=== PATIENT | female | born 1965 | race Caucasian/White ===

== ENCOUNTER 2023-06-05 09:52 | Outpatient (CLI) | payer BC, MEDICARE ==
[2023-06-05 10:58] LABS: Hematocrit 32.9 % (34.9-44.5); Hemoglobin 11.4 g/dL (12.0-15.5); Mean Corpuscular HGB CONC 34.7 g/dL (32.0-36.0); Mean Corpuscular Hemoglobin 33.4 pg (27.0-33.0); Mean Corpuscular Volume 96.5 fl (81.6-98.3); Mean Platelet Volume 9.3 fl (7.4-10.4); Platelet Count 215 10x3/uL (150-450); RBC Distribution Width 12.2 % (11.5-14.5); Red Blood Cell (RBC) Count 3.41 10x6/uL (3.90-5.03); White Blood Cell (WBC) Count 8.8 10x3/uL (3.5-10.5)
[2023-06-05 11:24] LABS: INR-International Normal Ratio 0.9; PTT 27.6 sec (22.0-33.0); Prothrombin Time 9.9 sec (9.5-12.1)
[2023-06-05 11:30] LABS: Anion Gap 19 mmol/L (10-20); BUN (Urea Nitrogen) 90 mg/dL (9.8-20.1); Calc. Creatinine Clearance 0 mL/min (70-130); Carbon Dioxide 25 mmol/L (22-29); Chloride 96 mmol/L (98-107); Estimated GFR 5; Glucose 98 mg/dL (70-105); Sodium 136 mmol/L (136-145)
== END 2023-06-05 09:53 | disposition home or self-care (01) ==
LOC: LABBT 09:52
PROVIDERS: ATTEND Neurological Surgery
DX: Z01.818 Encounter for other preprocedural examination (principal); M50.022 Cervical disc disorder at C5-C6 level with myelopathy; M50.023 Cervical disc disorder at C6-C7 level with myelopathy
CPT/HCPCS: 80048; 85027; 85610; 85730; 93005; 93010

== ENCOUNTER 2023-06-08 11:00 | Inpatient (IN) | payer BC ==
[2023-06-11] MEDS ORDERED: Vancomycin 1 GM VIAL ONE (06:10)
[2023-06-11] MEDS ORDERED: Thrombin 5000 UNITS/5 ML VIAL ONE (06:10)
[2023-06-11] MEDS ORDERED: Fentanyl 250 MCG/5 ML VIAL ONE (06:19)
[2023-06-11] MEDS ORDERED: PROPOFOL 20 ML ONE (06:19)
[2023-06-11] MEDS ORDERED: Lidocaine 1% PF 5 ML VIAL ONE ×2 (06:19→07:04)
[2023-06-11] MEDS ORDERED: Rocuronium Bromide 10 MG/ML (10ML VIAL) ONE ×2 (06:19→07:04)
[2023-06-11] MEDS ORDERED: CEFAZOLIN 2 GM VIAL ONE (06:44)
[2023-06-11] MEDS ORDERED: Sodium Chloride 0.9% 100 ML ONE ×2 (06:44→09:55)
[2023-06-11] MEDS ORDERED: Mag-Al 1200 mg/1200 mg/30 ML UDCUP PO PRN (06:50)
[2023-06-11] MEDS ORDERED: Ondansetron PF 4 MG/2 ML Vial IVP PRN (06:50)
[2023-06-11] MEDS ORDERED: diphenhydrAMINE 50 MG/ML VIAL IVP PRN (06:50)
[2023-06-11] MEDS ORDERED: Promethazine 25 MG TAB PO PRN (06:50)
[2023-06-11] MEDS ORDERED: Milk Of Magnesia 30 ML UDCUP PO PRN (06:50)
[2023-06-11] MEDS ORDERED: Acetaminophen/Codeine 30-300mg Tablet PO PRN (06:50)
[2023-06-11] MEDS ORDERED: HYDROcodone/Acetaminophen 7.5/325 mg Tablet PO PRN ×2 (06:50→22:47)
[2023-06-11] MEDS ORDERED: Acetaminophen 325 MG TAB PO PRN (06:50)
[2023-06-11] MEDS ORDERED: Morphine 2 MG/ML VIAL SLOW IVP PRN (06:50)
[2023-06-11] MEDS ORDERED: Midazolam HCl 2 mg/2 ml Vial ONE (06:53)
[2023-06-11] MEDS ORDERED: Ondansetron PF 4 MG/2 ML Vial ONE ×2 (07:04→07:31)
[2023-06-11] MEDS ORDERED: PROPOFOL 200 MG/20 ML VIAL ONE (07:04)
[2023-06-11] MEDS ORDERED: Dexamethasone 20 MG/5 ML VIAL ONE ×2 (07:04→07:31)
[2023-06-11] MEDS ORDERED: NEOSTIGMINE 3 MG/3 ML SYR 3 MG/3 ML SYRINGE ONE ×2 (07:04→09:55)
[2023-06-11] MEDS ORDERED: Glycopyrrolate 0.2 MG/ML 5 ML SYRINGE ONE ×2 (07:04→09:55)
[2023-06-11] MEDS ORDERED: PHENYLEPHRINE-NS 100 MCG/ML 10 ML SYRINGE ONE ×2 (07:04→08:36)
[2023-06-11 07:16] LABS: Hemoglobin 11.9 g/dL (12.0-16.0); Mean Corpuscular Hemoglobin 33.7 pg (27.0-31.0); Mean Corpuscular Volume 96.3 fl (78.0-98.0); Platelet Count 213 10x3/uL (130-400); RBC Distribution Width 12.1 % (11.5-14.5); Red Blood Cell (RBC) Count 3.53 mill/uL (4.20-5.40); White Blood Cell (WBC) Count 7.6 10x3/uL (4.8-10.8)
[2023-06-11 07:43] LABS: Anion Gap 17 mmol/L (10-20); BUN (Urea Nitrogen) 83 mg/dL (9.8-20.1); Calc. Creatinine Clearance 8 mL/min (70-130); Calcium 9.7 mg/dL (7.8-10.44); Carbon Dioxide 24 mmol/L (22-29); Chloride 98 mmol/L (98-107); Estimated GFR 5; Glucose 169 mg/dL (70-105); Potassium 3.8 mmol/L (3.5-5.1); Sodium 135 mmol/L (136-145)
[2023-06-11] MEDS ORDERED: Dexmedetomidine 200 MCG/2 ML VIAL ONE (09:37)
[2023-06-11] MEDS ORDERED: Lidocaine 2% PF 5 ML VIAL ONE (09:55)
[2023-06-11] MEDS ORDERED: fentaNYL 50 mcg/mL 1 mL Vial ONE ×2 (10:57→11:09)
[2023-06-11] MEDS ORDERED: Morphine 4 MG/ML VIAL ONE (11:27)
[2023-06-11] MEDS ORDERED: HYDROmorphone 0.5 MG/0.5 ML SYRINGE ONE (11:41)
[2023-06-11] MEDS ORDERED: tiZANidine HCl 4 MG TAB ONE (11:57)
[2023-06-11] MEDS: tiZANidine HCl 4 MG TAB PO PRN ×2 (11:59→21:09)
[2023-06-11] MEDS: Sodium Chloride 0.9% 1,000 ML IV SCH ×2 (12:39→18:33)
[2023-06-11 13:19] VITALS: BMI 30.2
[2023-06-11] MEDS ORDERED: Dextrose 50% Abboject 50 ML SYRINGE SLOW IVP PRN (14:00)
[2023-06-11] MEDS ORDERED: Dextrose 5% in Water 1,000 ML IV PRN (14:00)
[2023-06-11] MEDS ORDERED: Glucagon 1 MG/ML KIT IM PRN (14:00)
[2023-06-11] MEDS ORDERED: Senokot S 8.6-50 MG TAB PO SCH (15:00)
[2023-06-11] MEDS: HYDROcodone/Acetaminophen 10/325 mg Tablet PO PRN ×2 (15:49→21:09)
[2023-06-11] MEDS: CEFAZOLIN 2 GM in Sodium Chloride 0.9% 100 ML IVPB SCH ×2 (15:50→23:54)
[2023-06-11] MEDS: HumaLOG 300 UNITS/3 ML VIAL SC PRN ×2 (15:56→21:49)
[2023-06-11 18:37] LABS: HBSAg Index 0.45 S/CO (0-0.99); Hep B Core Total Ab Non-Reactive (NonReactive); Hep B Core Total Index 0.13 S/CO (0-0.79); Hep B Surf Ag Non-Reactive S/CO (NonReactive); Hep C IgG Ab Non-Reactive S/CO (NonReactive); Hep C Index 0.05 S/CO (0-0.79)
[2023-06-11 18:48] LABS: HBSAB Concentration 97.79 mIU/mL; Hep B Surf AB Reactive (NonReactive)
[2023-06-11] MEDS ORDERED: Atorvastatin Calcium 40 MG TAB PO SCH (21:00)
[2023-06-11] MEDS ORDERED: Terazosin HCl 5 MG CAP PO SCH (21:00)
[2023-06-11] MEDS: Carvedilol 25 MG TAB PO SCH (21:02)
[2023-06-11] MEDS: Artificial Tear Sol 15 ML BOT EA EYE SCH (21:02)
[2023-06-11] MEDS: Senokot S 8.6-50 MG TAB PO SCH (21:02)
[2023-06-12] MEDS ORDERED: HumaLOG 300 UNITS/3 ML VIAL SC PRN (01:34)
[2023-06-12] MEDS: HYDROcodone/Acetaminophen 10/325 mg Tablet PO PRN (02:01)
[2023-06-12] MEDS ORDERED: Levothyroxine Sodium 100 MCG TAB PO SCH (06:00)
[2023-06-12] MEDS: HumaLOG 300 UNITS/3 ML VIAL SC PRN ×3 (08:24→13:18)
[2023-06-12] MEDS: Carvedilol 25 MG TAB PO SCH (08:57)
[2023-06-12] MEDS: Senokot S 8.6-50 MG TAB PO SCH (08:57)
[2023-06-12] MEDS: Artificial Tear Sol 15 ML BOT EA EYE SCH (08:57)
[2023-06-12] MEDS ORDERED: Insulin NPH Human Isophane 100 UNITS/ML (10 ML VIAL) SC SCH ×2 (09:00→21:00)
[2023-06-12] MEDS ORDERED: Furosemide 80 MG TAB PO SCH (09:00)
[2023-06-12] MEDS ORDERED: Pregabalin 25 MG CAP PO SCH (09:00)
[2023-06-12] MEDS: Sodium Chloride 0.9% 1,000 ML IV SCH (09:08)
[2023-06-12 10:41] LABS: #Basophils 0.1 thou/uL (0.0-0.2); %Basophils 0.4 % (0.0-1.0); %Eosinophils 0.2 % (0.0-10.0); %Monocytes 8.2 % (0.0-10.0); Hematocrit 35.5 % (36.0-47.0); Hemoglobin 11.5 g/dL (12.0-16.0); Mean Corpuscular HGB CONC 32.4 g/dL (32.0-36.0); Mean Corpuscular Hemoglobin 32.4 pg (27.0-31.0); Mean Platelet Volume 9.3 fL (7.4-10.4); Platelet Count 231 10x3/uL (130-400); Red Blood Cell (RBC) Count 3.55 mill/uL (4.20-5.40)
[2023-06-12 11:06] LABS: Albumin 3.8 g/dL (3.5-5.0); Anion Gap 21 mmol/L (10-20); BUN (Urea Nitrogen) 89 mg/dL (9.8-20.1); BUN/Creatinine Ratio 9.04; Calc. Creatinine Clearance 8 mL/min (70-130); Carbon Dioxide 20 mmol/L (22-29); Chloride 91 mmol/L (98-107); Estimated GFR 4; Phosphorus 5.4 mg/dL (2.3-4.7); Potassium 4.3 mmol/L (3.5-5.1); Sodium 128 mmol/L (136-145)
[2023-06-12 11:21] LABS: Glucose 584 mg/dL (70-105)
[2023-06-12 13:41] VITALS: BP 171/84; TEMP 97.7
== END 2023-06-12 14:20 | disposition home or self-care (01) | DRG 471 ==
LOC: SURG A 06-11 06:03 → T4-A 06-11 12:38
PROVIDERS: ADMIT Neurological Surgery; ATTEND Neurological Surgery
PROC: 0RG2070 Fusion of 2 or more Cervical Vertebral Joints with Autologous Tissue Substitute, Anterior Approach, Anterior Column, Open Approach (ICD-10-PCS; principal; 2023-06-11)
PROC: 0RB30ZZ Excision of Cervical Vertebral Disc, Open Approach (ICD-10-PCS; 2023-06-11)
PROC: 00NW0ZZ Release Cervical Spinal Cord, Open Approach (ICD-10-PCS; 2023-06-11)
PROC: 3E1M39Z Irrigation of Peritoneal Cavity using Dialysate, Percutaneous Approach (ICD-10-PCS; 2023-06-11)
PROC: 0RG20A0 Fusion of 2 or more Cervical Vertebral Joints with Interbody Fusion Device, Anterior Approach, Anterior Column, Open Approach (ICD-10-PCS; 2023-06-11)
DX: M50.022 Cervical disc disorder at C5-C6 level with myelopathy (principal); N18.6 End stage renal disease; I12.0 Hypertensive chronic kidney disease with stage 5 chronic kidney disease or end stage renal disease; M47.12 Other spondylosis with myelopathy, cervical region; G95.20 Unspecified cord compression; M50.023 Cervical disc disorder at C6-C7 level with myelopathy; M19.90 Unspecified osteoarthritis, unspecified site; E78.00 Pure hypercholesterolemia, unspecified; G89.29 Other chronic pain; M48.02 Spinal stenosis, cervical region; M51.26 Other intervertebral disc displacement, lumbar region; M48.062 Spinal stenosis, lumbar region with neurogenic claudication; E03.9 Hypothyroidism, unspecified; D63.1 Anemia in chronic kidney disease; E11.22 Type 2 diabetes mellitus with diabetic chronic kidney disease; G43.909 Migraine, unspecified, not intractable, without status migrainosus; Z98.51 Tubal ligation status; Z99.2 Dependence on renal dialysis; Z98.890 Other specified postprocedural states; Z87.891 Personal history of nicotine dependence; Z88.1 Allergy status to other antibiotic agents
CPT/HCPCS: 36415; 36416; 80048; 80069; 85025; 85027; 86704; 90945; C1713; G0257; J1100; J1170; J1815; J2001; J2250; J2270; J2405; J2704; J3010; J3370; J3490